=== PATIENT | male | born 1995 | race Caucasian/White ===

== ENCOUNTER 2021-04-11 03:41 | Emergency (ER) | payer SELFPAY ==
[~2021-04-11] VITALS: Ht 167.6 cm; Wt 59.0 kg
[2021-04-11 03:49] VITALS: BP 150/99
[2021-04-11 05:30] VITALS: BP 150/99
--- NOTE | 2021-04-11 05:30 | NUR ---
PATIENT BIB [employer]. PATIENT EXAMINED BY DR. FIGUEROA. PATIENT MEDICALLY CLEARED AND RELEASED IN CUSTODY IN STABLE CONDITION. ORIGINAL PRE-BOOK FORM GIVEN TO OFFICER [facility] #409.
== END 2021-04-11 05:30 ==
LOC: MED 03:41
DX: Z02.89 Encounter for other administrative examinations (principal); V47.5XXA Car driver injured in collision with fixed or stationary object in traffic accident, initial encounter; Y93.89 Activity, other specified; Y92.89 Other specified places as the place of occurrence of the external cause; Y99.8 Other external cause status
CPT/HCPCS: 99283